=== PATIENT | female | born 1945 | race Caucasian/White ===

== ENCOUNTER 2016-11-18 14:52 | Emergency (ER) | payer MEDICARE ==
--- NOTE | 2016-11-18 15:28 | UC ---
Dizzy HPI HPI Summary: 4-5 DAYS OF FEELING LIGHTHEADED. HEAD " FEELS FULL". ALSO HAS HAD SOME TREMULOUSNESS IN HER UPPER EXTREMITIES. 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 IT WAS NOTED TO BE HIGH SO SHE CAME HERE WHERE BP WAS FOUND TO BE NORMAL. SHE ADMITS TO NOT DRINKING MUCH TODAY AND HAS A SLIGHT COUGH. DENIES ST, NAUSEA, FEVER, CONGESTION, PETIT, SOB OR CP. HAS NOT BEEN SICK RECENTLY. NO GAIT INSTABILITY. NO VISUAL DISTURBANCES. - History Of Current Complaint Chief Complaint: UCDizziness Stated Complaint: SHAKEY,LIGHT HEADED Time Seen by Provider: 11/18/16 15:01 Hx Obtained From: Patient Onset/Duration: Gradual Onset, Lasting Days, Still Present Timing: Constant Severity Initially: Moderate Severity Currently: Moderate Pain Intensity: 0 Pain Scale Used: 0-10 Numeric Character: Lightheaded Aggravating Factor(s): Nothing Alleviating Factor(s): Nothing Associated Signs And Symptoms: Negative: Nausea, Vomiting, Diaphoresis, Tinnitus , Chest Pain, SOB, Palpitations, Unsteady Gait, Visual Changes - Allergies/Home Medications Allergies/Adverse Reactions: Allergies Allergy/AdvReac Type Severity Reaction Status Date / Time Adhesive Tape Allergy Unknown Unknown Verified 11/18/16 14:58 Reaction Details Ciprofloxacin [From Cipro] Allergy Unknown Unknown Verified 11/18/16 14:58 Reaction Details Home Medications: Home Medications Atenolol TAB* [Tenormin TAB* 25 MG] 25 mg PO DAILY 11/18/16 [History Confirmed 11/18/16] Biotin 1,000 mcg PO 11/18/16 [History] Calcium 600 mg PO DAILY 11/18/16 [History Confirmed 11/18/16] Famotidine TAB* [Pepcid 20 MG TAB*] 20 mg PO DAILY 11/18/16 [History Confirmed 11/18/16] Levothyroxine TAB* [Synthroid 75 MCG TAB*] 75 mcg PO DAILY 11/18/16 [History Confirmed 11/18/16] busPIRone TAB* [Buspar TAB*] 7.5 mg PO BID 11/18/16 [History Confirmed 11/18/16] PMH/Surg Hx/FS Hx/Imm Hx Endocrine History: Hypothyroidism Cardiovascular History: Hypertension Cancer History: Breast Cancer - Surgical History Surgical History: Yes Surgery Procedure, Year, and Place: LEFT BREAST LUMPECTOMY. RIGHT KNEE ARTHOSCOPY - Social History Alcohol Use: None Substance Use Type: None Smoking Status (MU): Never Smoked Tobacco - Immunization History Most Recent Influenza Vaccination: NOT IN 2017 Review of Systems Constitutional: Negative Respiratory: Negative Cardiovascular: Negative Gastrointestinal: Negative Neurological: Other - DIZZY All Other Systems Reviewed And Are Negative: Yes Physical Exam Triage Information Reviewed: Yes Appearance: Well-Appearing, No Pain Distress, Well-Nourished Vital Signs: Initial Vital Signs Temp 98.6 F 11/18/16 15:02 Pulse 86 11/18/16 15:02 Resp 17 11/18/16 15:02 Pulse Ox 99 11/18/16 15:02 Vital Signs Reviewed: Yes Eyes: Positive: Conjunctiva Clear ENT: Positive: Hearing grossly normal, Pharynx normal, TMs normal Neck: Positive: Supple, Nontender, No Lymphadenopathy Respiratory Exam: Normal Cardiovascular Exam: Normal Abdomen Description: Positive: Soft Musculoskeletal: Positive: Edema @ - TRACE NON PITTING ANKLE EDEMA Neurological: Positive: Alert, Muscle Tone Normal, Other: - SLIGHT INTENTION TREMOR Psychological: Positive: Age Appropriate Behavior Skin: Negative: rashes Diagnostics - EKG Cardiac Rate: NL - 81BPM Cardiac Rhythm: Sinus: Normal Ectopy: None ST Segment: Normal Dizzy Course/Dx - Course Course Of Treatment: UNCLEAR ETIOLOGY OF SX. POSSIBLE IMPENDING URI? DISCUSSED TRANSFER TO ER FOR FURTHER EVAL. PT DECLINES. WILL F/U WITH PCP AND GO TO ER IF SX WORSEN. - Differential Dx/Diagnosis Provider Diagnoses: LIGHTHEADED Discharge - Discharge Plan Condition: Stable Disposition: HOME Patient Education Materials: Lightheadedness (ED) Referrals: Jeff Perez MD [Medical Doctor] - 1 Week Additional Instructions: YOUR SYMPTOMS ARE NOT SPECIFIC FOR ANY PARTICULAR CONDITION. STAY WELL HYDRATED AND RESTED. FOLLOW-UP WITH YOUR PCP FOR FURTHER EVALUATION. GO TO THE ER WITHOUT FAIL IF YOUR SYMPTOMS WORSEN. YOUR BLOOD PRESSURE HERE TODAY WAS 121/58.
[2016-11-18 15:31] VITALS: BP 121/58
== END 2016-11-18 15:36 | disposition home or self-care (01) ==
LOC: UCCORT 14:52
DX: R42 Dizziness and giddiness (principal); E03.9 Hypothyroidism, unspecified; I10 Essential (primary) hypertension; C50.919 Malignant neoplasm of unspecified site of unspecified female breast; Z88.3 Allergy status to other anti-infective agents
CPT/HCPCS: 93005; 99211; G0463

== ENCOUNTER 2017-07-04 08:14 | Emergency (ER) | payer MEDICARE ==
[2017-07-04 08:34] VITALS: BP 106/57
--- NOTE | 2017-07-04 08:43 | UC ---
Skin Complaint HPI - HPI Summary HPI Summary: This lady was stung by an insect this morning,while out feeding the birds, on her left thumb on. Has some erythema on her thumb neuro motor and circulation intact distally, full range of motion - History of Current Complaint Chief Complaint: UCUpperExtremity Time Seen by Provider: 07/04/17 08:18 Stated Complaint: lft hand -poss bug bite Hx Obtained From: Patient ?: No Onset/Duration: Sudden Onset, Still Present Skin Exposure Onset/Duration: Minutes Ago Timing: Constant Onset Severity: Moderate Current Severity: Moderate Pain Intensity: 7 Pain Scale Used: 0-10 Numeric Location: Discrete - left thumb Character: Pain, Redness Aggravating Factor(s): Nothing Alleviating Factor(s): Cold Related History: Insect Bite/Sting - Allergy/Home Medications Allergies/Adverse Reactions: Allergies Allergy/AdvReac Type Severity Reaction Status Date / Time Adhesive Tape Allergy Unknown Unknown Verified 07/04/17 08:28 Reaction Details ciprofloxacin Allergy Diarrhea Verified 07/04/17 08:28 Home Medications: Home Medications Metoprolol Tartrate TAB* [Lopressor TAB*] 25 mg PO BID 07/04/17 [History Confirmed 07/04/17] Review of Systems Constitutional: Negative - Admission department at [facility] with no different Skin: Other - erythema left thumb Eyes: Negative ENT: Negative Respiratory: Negative Cardiovascular: Negative Gastrointestinal: Negative Genitourinary: Negative Motor: Negative Neurovascular: Negative Musculoskeletal: Negative Neurological: Negative Psychological: Negative Is Patient Immunocompromised?: No All Other Systems Reviewed And Are Negative: Yes PMH/Surg Hx/FS Hx/Imm Hx Endocrine History: Hypothyroidism Cardiovascular History: Hypertension GI/ History: Gastroesophageal Reflux - Surgical History Surgical History: Yes Surgery Procedure, Year, and Place: LEFT BREAST LUMPECTOMY. RIGHT KNEE ARTHOSCOPY - Family History Known Family History: Positive: Unknown - Social History Occupation: Retired Lives: With Family Alcohol Use: None Substance Use Type: None Smoking Status (MU): Never Smoked Tobacco - Immunization History Most Recent Influenza Vaccination: NOT IN 2017 Physical Exam Triage Information Reviewed: Yes Appearance: Well-Appearing, No Pain Distress, Well-Nourished Vital Signs: Initial Vital Signs Temp 98.4 F 07/04/17 08:25 Pulse 69 07/04/17 08:25 Resp 20 07/04/17 08:25 BP 106/57 07/04/17 08:25 Pulse Ox 100 07/04/17 08:25 Vital Signs Reviewed: Yes Eye Exam: Normal Eyes: Positive: Conjunctiva Clear ENT Exam: Normal ENT: Positive: Normal ENT inspection, Hearing grossly normal. Negative: Muffled voice, Hoarse voice, Dental tenderness Dental Exam: Normal Neck exam: Normal Neck: Positive: Supple, Nontender Respiratory Exam: Normal Respiratory: Positive: Chest non-tender, No respiratory distress, No accessory muscle use Cardiovascular Exam: Normal Cardiovascular: Positive: RRR, Pulses Normal, Brisk Capillary Refill Musculoskeletal Exam: Other Musculoskeletal: Positive: Strength Intact, ROM Intact, Edema @ - Mild swelling left thumb Neurological Exam: Normal Neurological: Positive: Alert, Muscle Tone Normal Psychological Exam: Normal Skin Exam: Other Skin: Positive: Other - Some erythema on her leg [place] I she is a left thumb Course/Dx - Course Course Of Treatment: Ice, Benadryl when necessary cortisone cream, monitor for signs and symptoms of infection follow with PCP or return as needed - Diagnoses Provider Diagnoses: Insect bite to her left thumb Discharge - Sign-Out/Discharge Documenting (check all that apply): Discharge - Discharge Plan Condition: Stable Disposition: HOME Patient Education Materials: Diphenhydramine (By mouth), Hydrocortisone (On the skin), Insect Bite or Sting (ED), Ice Pack Application (ED) Referrals: JOSELIN Montague [Primary Care Provider] - If Needed - Billing Disposition and Condition Condition: STABLE Disposition: HOME
== END 2017-07-04 08:50 | disposition home or self-care (01) ==
LOC: UCCORT 08:14
DX: S60.362A Insect bite (nonvenomous) of left thumb, initial encounter (principal); W57.XXXA Bitten or stung by nonvenomous insect and other nonvenomous arthropods, initial encounter; Y92.9 Unspecified place or not applicable; Z88.3 Allergy status to other anti-infective agents
CPT/HCPCS: 99211; G0463

== ENCOUNTER 2017-11-12 07:56 | Emergency (ER) | payer BC ==
[2017-11-12 08:22] VITALS: BP 120/54
--- NOTE | 2017-11-12 09:05 | ED ---
Throat Pain/Nasal Congestion - HPI Summary HPI Summary: 72 yr old female with the complaint of runny nose, sore throat, coughing. Onset five days ago. No fever, chills or SOB. No weakness or dizziness. - History of Current Complaint Chief Complaint: UCRespiratory - Allergies/Home Medications Allergies/Adverse Reactions: Allergies Allergy/AdvReac Type Severity Reaction Status Date / Time Adhesive Tape Allergy Unknown Unknown Verified 11/12/17 08:13 Reaction Details ciprofloxacin Allergy Diarrhea Verified 11/12/17 08:13 Home Medications: Home Medications Lutein/Zeaxanthin [Lutein-Zeaxanthin 20-1 mg Sfgl] 1 each PO DAILY 11/12/17 [ History Confirmed 11/12/17] PMH/Surg Hx/FS Hx/Imm Hx Endocrine/Hematology History: Reports: Hx Thyroid Disease Cardiovascular History: Reports: Hx Hypertension - Cancer History Cancer Type, Location and Year: BREAST CA . LEFT LUMPECTOMY - Surgical History Surgery Procedure, Year, and Place: LEFT BREAST LUMPECTOMY. RIGHT KNEE ARTHOSCOPY Infectious Disease History: No Infectious Disease History: Denies: Traveled Outside the [place] in Last 30 Days - Family History Known Family History: Positive: Unknown - Social History Alcohol Use: None Substance Use Type: Reports: None Smoking Status (MU): Never Smoked Tobacco Review of Systems Positive: Nasal Discharge Positive: Cough All Other Systems Reviewed And Are Negative: Yes Physical Exam Triage Information Reviewed: Yes Vital Signs On Initial Exam: Initial Vitals Temp Pulse Resp BP Pulse Ox 99.1 F 75 26 120/54 98 11/12/17 08:16 11/12/17 08:16 11/12/17 08:16 11/12/17 08:16 11/12/17 08:16 Vital Signs Reviewed: Yes Appearance: Positive: Well-Appearing, No Pain Distress Skin: Positive: Warm, Skin Color Reflects Adequate Perfusion Head/Face: Positive: Normal Head/Face Inspection Eyes: Positive: EOMI ENT: Positive: Normal ENT inspection, Pharynx normal, Nasal congestion, TMs normal Neck: Positive: Nontender Respiratory/Lung Sounds: Positive: Clear to Auscultation, Breath Sounds Present Cardiovascular: Positive: RRR. Negative: Murmur Abdomen Description: Positive: Nontender Musculoskeletal: Positive: Strength/ROM Intact Neurological: Positive: Sensory/Motor Intact, Alert, Oriented to Person Place, Time, CN Intact II-III, Normal Gait, Speech Normal Psychiatric: Positive: Normal Diagnostics - Vital Signs Vital Signs Temp Pulse Resp BP Pulse Ox 11/12/17 08:16 99.1 F 75 26 120/54 98 - Laboratory Lab Statement: Any lab studies that have been ordered have been reviewed, and results considered in the medical decision making process. EENT Course/Dx - Course Course Of Treatment: 72 yr old female with URI symptoms - Diagnoses Provider Diagnoses: Upper respiratory infection Discharge - Sign-Out/Discharge Documenting (check all that apply): Patient Departure All imaging exams completed and their final reports reviewed: No Studies - Discharge Plan Condition: Good Disposition: HOME Patient Education Materials: Upper Respiratory Infection (ED) Referrals: Terrence Ryder PA [Primary Care Provider] - 2 Days - Billing Disposition and Condition Condition: GOOD Disposition: Home
== END 2017-11-12 09:16 | disposition home or self-care (01) ==
LOC: UCCORT 07:56
DX: J06.9 Acute upper respiratory infection, unspecified (principal); Z88.1 Allergy status to other antibiotic agents; I10 Essential (primary) hypertension; Z85.3 Personal history of malignant neoplasm of breast
CPT/HCPCS: 99211; G0463

== ENCOUNTER 2018-07-22 13:35 | Emergency (ER) | payer BC, MEDICARE ==
[2018-07-22 14:08] VITALS: BP 122/51
--- NOTE | 2018-07-22 14:24 | UC ---
Skin Complaint HPI - HPI Summary HPI Summary: 73-year-old female presents with onset of painful rash to her left mid back 3 days ago. States rash is very tender to even light touch. Describes the pain as a burning. Patient did receive the shingles vaccine. Denies fever, chills, swelling of the lips tongue or throat, difficulty breathing, changes in medications, diet, soaps, detergents, lotions, cosmetics, or known contact with environmental irritants. - History of Current Complaint Chief Complaint: UCRash Time Seen by Provider: 07/22/18 14:12 Stated Complaint: SKIN CONCERN - BACK Hx Obtained From: Patient Pain Intensity: 1 - Allergy/Home Medications Allergies/Adverse Reactions: Allergies Allergy/AdvReac Type Severity Reaction Status Date / Time Adhesive Tape Allergy Unknown Unknown Verified 07/22/18 14:02 Reaction Details ciprofloxacin Allergy Diarrhea Verified 07/22/18 14:02 Home Medications: Home Medications Biotin 10,000 mcg PO DAILY 07/22/18 [History Confirmed 07/22/18] Calcium Carbonate/Vitamin D3 [Calcium/Vitamin D] 1 cap PO BID 07/22/18 [History Confirmed 07/22/18] PMH/Surg Hx/FS Hx/Imm Hx Cardiovascular History: Hypertension GI/ History: Gastroesophageal Reflux Psychological History: Depression - Surgical History Surgical History: Yes Surgery Procedure, Year, and Place: Left Breast Lumpectomy, Right TKA - Family History Known Family History: Positive: Unknown - Social History Occupation: Retired Lives: Alone Alcohol Use: None Substance Use Type: None Smoking Status (MU): Never Smoked Tobacco - Immunization History Most Recent Influenza Vaccination: NOT IN 2017 Review of Systems All Other Systems Reviewed And Are Negative: Yes Constitutional: Negative: Fever, Chills Skin: Positive: Rash - See HPI ENT: Positive: Negative Respiratory: Positive: Negative Cardiovascular: Positive: Negative Gastrointestinal: Positive: Negative Genitourinary: Positive: Negative Musculoskeletal: Positive: Negative Neurological: Positive: Negative Is Patient Immunocompromised?: No Physical Exam - Summary Physical Exam Summary: GENERAL APPEARANCE: Well developed, well nourished, alert and cooperative, and appears to be in no acute distress. CARDIAC: Normal S1 and S2. No S3, S4 or murmurs. Rhythm is regular. There is no peripheral edema, cyanosis or pallor. Extremities are warm and well perfused. Capillary refill is less than 2 seconds. Peripheral pulses intact. LUNGS: Clear to auscultation without rales, rhonchi, wheezing or diminished breath sounds. ABDOMEN: Positive bowel sounds. Soft, nondistended, nontender. No guarding or rebound. No masses or hepatosplenomegally. MUSKULOSKELETAL: ROM intact to all extremities. No joint erythema or tenderness. Normal muscular development. Normal gait. SKIN: Vesicular, dermatomal, erythematous rash to the left thoracic back at the bra-line. Triage Information Reviewed: Yes Vital Signs: Initial Vital Signs Temp 98.7 F 07/22/18 13:58 Pulse 88 07/22/18 13:58 Resp 18 07/22/18 13:58 BP 122/51 07/22/18 13:58 Pulse Ox 98 07/22/18 13:58 Vital Signs Reviewed: Yes Course/Dx - Course Course Of Treatment: 73-year-old female presents with onset of painful rash to her left mid back 3 days ago. States rash is very tender to even light touch. Describes the pain as a burning. Patient did receive the shingles vaccine. Denies fever, chills, swelling of the lips tongue or throat, difficulty breathing, changes in medications, diet, soaps, detergents, lotions, cosmetics, or known contact with environmental irritants. Afebrile. Vital signs stable. Exam revealed an erythematous, vesicular, dermatomal rash to the patient's thoracic back right at the bra line. Appearance of the rash is consistent with herpes zoster therefore we'll start her on valacyclovir 1000 mg 3 times a day 7 days. She is to follow-up with her primary care provider in 3-5 days for recheck for symptoms. Anticipatory guidance and warning symptoms were reviewed with the patient. Verbalizes understanding and agrees with plan of care. - Differential Diagnoses - Skin Complaint Differential Diagnoses: Cellulitis, Contact Dermatitis, Local Allergic Reaction , Urticaria, Varicella Zoster - Diagnoses Provider Diagnosis: Herpes zoster Discharge - Sign-Out/Discharge Documenting (check all that apply): Patient Departure All imaging exams completed and their final reports reviewed: No Studies - Discharge Plan Condition: Stable Disposition: HOME Prescriptions: Valacyclovir HCl [Valacyclovir] 1,000 mg PO TID #21 tab Patient Education Materials: Shingles (ED) Referrals: Terrence Ryder PA [Primary Care Provider] - 3 Days Additional Instructions: The appearance of your rash is consistent with shingles. Start valacyclovir 1000 mg three times a day for 7 days. This is not a cure for shingles but is meant to slow the progression of the rash, reduce the duration of symptoms, and prevent complications. Use acetaminophen (Tylenol) or ibuprofen (Advil, Motrin) according to directions as needed for pain. Follow up with your primary care provider in 3-5 days for a recheck of the rash. Seek immediate medical attention if you develop fever greater than 100.5 F, have worsening pain, the redness continues to spread, or you have any worsening of symptoms. - Billing Disposition and Condition Condition: STABLE Disposition: Home
== END 2018-07-22 14:37 | disposition home or self-care (01) ==
LOC: UCCORT 13:35
DX: B02.9 Zoster without complications (principal); I10 Essential (primary) hypertension; K21.9 Gastro-esophageal reflux disease without esophagitis; F32.9 Major depressive disorder, single episode, unspecified; Z88.1 Allergy status to other antibiotic agents; Z91.048 Other nonmedicinal substance allergy status
CPT/HCPCS: 99212; G0463